=== PATIENT | male | born 1990 | race African-American/Black ===

== ENCOUNTER 2022-02-23 10:21 | Emergency (ER) | payer SELFPAY ==
[~2022-02-23] VITALS: Ht 172.7 cm; Wt 77.1 kg
[2022-02-23] MEDS ORDERED: MORPHINE SULFATE 4 MG/1 ML DISP.SYRIN ONE (10:55)
[2022-02-23] MEDS ORDERED: MORPHINE SULFATE 4 MG/1 ML DISP.SYRIN IM ONE (11:00)
[2022-02-23] MEDS ORDERED: SWABABLE VALVE TRANSFER SET EA MC ONE (11:16)
[2022-02-23] MEDS ORDERED: IV NORMAL SALINE 250 ML IV ONE (11:16)
[2022-02-23] MEDS ORDERED: IOHEXOL 300MG/ML 50 ML VIAL ONE (11:16)
[2022-02-23 11:28] LABS: HEMATOCRIT 45.3 % (36.7-47.1); MEAN CORPUSCULAR HEMOGLOBIN 28.6 uug (23.8-33.4); MEAN CORPUSCULAR VOLUME 86.8 fL (73.0-96.2); PLATELET COUNT (AUTO) 209 K/uL (152-348)
--- NOTE | 2022-02-23 11:32 | NUR ---
Pt signed for IV contrasted Ct scan, placed in the chart.
[2022-02-23 11:51] LABS: BILIRUBIN,TOTAL 0.5 mg/dL (0.2-1.0); CREATININE 1.2 mg/dL (0.6-1.3); POTASSIUM 4.5 mmol/L (3.5-5.1); TOTAL PROTEIN, SERUM 7.7 g/dL (6.4-8.2)
--- NOTE | 2022-02-23 11:58 | NUR ---
Pt back from Ct, HL in Rt AC infiltrated. Removed HL and placed ice pack on the site.
--- NOTE | 2022-02-23 12:07 | NUR ---
IV INFILTRATED, NOTIFIED DR. CHERY. BROUGHT PT BACK TO ER. RN TOOK OVER.
[2022-02-23] MEDS ORDERED: HYDROMORPHONE 2 MG/1 ML DISP.SYRIN ONE (12:14)
[2022-02-23] MEDS ORDERED: HYDROMORPHONE 1 MG/1 ML DISP.SYRIN IM ONE (12:15)
--- NOTE | 2022-02-23 12:22 | NUR ---
Pt's mother at the bedside, complained about pt's infiltrated Iv line. Swelling noted, but no redness observed. Pt requested to have warm pack applied which was done.
[2022-02-23] MEDS ORDERED: HYDROCODONE/APAP 5-325MG TABLET ONE (12:38)
[2022-02-23] MEDS ORDERED: HYDROCODONE/APAP 5-325MG TABLET PO ONE (12:45)
--- NOTE | 2022-02-23 13:27 | NUR ---
Patient discharged to home in stable condition. Written and verbal after care instructions given. Patient verbalizes understanding of instructions. Stressed follow up or return to ER for worsening s/s. Pt walked out of Er using his own crutches, accompained by family.
[2022-02-23 13:29] VITALS: BP 129/75
== END 2022-02-23 13:30 | disposition home or self-care (01) ==
LOC: ER 10:21
DX: M25.551 Pain in right hip (principal); V43.62XA Car passenger injured in collision with other type car in traffic accident, initial encounter; Y92.414 Local residential or business street as the place of occurrence of the external cause
CPT/HCPCS: 99285; 74176; 80053; 85025; 36415; 96372; Q9967; J2270; A4663; J1170